=== PATIENT | male | born 1945 | race Caucasian/White ===

== ENCOUNTER 2022-06-06 05:41 | Observation (INO) ==
[2022-06-06] MEDS ORDERED: Buffered Lidocaine 1% SYRIN 1 ml INTRADERM ONE (06:00)
[2022-06-06] MEDS ORDERED: Lactated Ringers 1000 ml BAG 1,000 ML IV SCH (06:00)
[2022-06-06] MEDS ORDERED: ceFAZolin 2 GM PREMIX 2 GM/50 ML BAG ONE (06:07)
[2022-06-06] MEDS ORDERED: fentaNYL 250 mcg/5 ml 50 MCG/ML 5 ml VIAL (250 MCG) ONE (07:02)
[2022-06-06] MEDS ORDERED: Midazolam 2 mg/2 ml VIAL 1 mg/ml 2 ml VIAL (2 mg) ONE (07:02)
[2022-06-06] MEDS ORDERED: Propofol 10 MG/ML 20 ML BTL ONE ×2 (07:02→12:49)
[2022-06-06] MEDS ORDERED: Phenylephrine IV 10 MG/ML 1 ml VIAL ONE (07:03)
[2022-06-06] MEDS ORDERED: Lidocaine 2% PF 5 ML VIAL ONE (07:03)
[2022-06-06] MEDS ORDERED: ROPIVACAINE 5 MG/ML 30 ML BTL (0.5%) ONE (07:06)
[2022-06-06] MEDS ORDERED: Rocuronium 50 mg VIAL 10 mg/ml 5 ml VIAL (50 mg) ONE ×2 (07:08→11:10)
[2022-06-06] MEDS ORDERED: Dexmedetomidine 200 mcg/2 ml 2 ml VIAL (200 mcg) ONE (07:27)
[2022-06-06] MEDS ORDERED: BUPIVACAINE **LIPOSOME/PF 13.3 MG/ML (266MG/ 20ML) VIAL (RESTRICTED) INFIL ONE (08:00)
[2022-06-06] MEDS ORDERED: Dexamethasone IV 4 MG/ML VIAL 1 ml VIAL ONE (08:31)
[2022-06-06] MEDS ORDERED: Naloxone 0.4 mg VIAL 0.4 mg/ml 1 ml VIAL IV PRN (10:12)
[2022-06-06] MEDS ORDERED: Prochlorperazine 5 mg/ml 2 ml VIAL (10 mg) IV PRN (10:12)
[2022-06-06] MEDS ORDERED: HYDROmorphone 1 MG/1 ML SYRINGE IV PRN (10:12)
[2022-06-06] MEDS ORDERED: ceFAZolin VIAL VIAL ONE (10:21)
[2022-06-06] MEDS ORDERED: Ondansetron 4 mg VIAL 2 MG/ML 2 ml VIAL ONE (11:56)
[2022-06-06] MEDS ORDERED: Lactulose 30 ml UDC PO PRN (12:16)
[2022-06-06] MEDS ORDERED: Magnesium Hydroxide LIQ 30 ML UDC PO PRN (12:16)
[2022-06-06] MEDS ORDERED: Ondansetron 4 mg VIAL 2 MG/ML 2 ml VIAL IV PRN (12:16)
[2022-06-06] MEDS ORDERED: Ondansetron ODT 4 mg TAB 4 MG TAB PO PRN (12:16)
[2022-06-06] MEDS ORDERED: ceFAZolin 1 GM ADVAN 1 GM in NS 0.9% 50 ML 50 ML IVPB SCH (13:00)
[2022-06-06] MEDS: Lactated Ringers 1000 ml BAG 1,000 ML IV SCH (18:27)
[2022-06-06] MEDS: ceFAZolin 1 GM ADVAN 1 GM in NS 0.9% 50 ML 50 ML IVPB SCH (19:38)
[2022-06-06] MEDS: Magnesium Hydroxide LIQ 30 ML UDC PO SCH (20:48)
[2022-06-07] MEDS: ceFAZolin 1 GM ADVAN 1 GM in NS 0.9% 50 ML 50 ML IVPB SCH ×2 (04:00→10:42)
[2022-06-07] MEDS: Lactated Ringers 1000 ml BAG 1,000 ML IV SCH (05:33)
[2022-06-07 06:21] LABS: Hematocrit 31 % (42-52); Hemoglobin 10.6 g/dL (14.0-18.0); Mean Platelet Volume 7.8 fL (7.4-10.4); Platelet Count 163 10^3/uL (150-450)
[2022-06-07 06:49] LABS: Potassium 4.8 mmol/L (3.5-5.0); eGFR CKD-EPI 69.6 (>60)
[2022-06-07] MEDS ORDERED: Vitamin THERAPEUTIC TAB PO SCH (09:00)
[2022-06-07] MEDS: Magnesium Hydroxide LIQ 30 ML UDC PO SCH (09:07)
[2022-06-07 11:52] VITALS: BP 143/70
== END 2022-06-07 13:00 | disposition home or self-care (01) ==
LOC: SSU 05:41 → OR 05:41
PROVIDERS: ADMIT Orthopaedic Surgery Sports Medicine; ATTEND Orthopaedic Surgery Sports Medicine

== ENCOUNTER 2024-02-23 09:11 | Observation (INO) ==
[~2024-02-23 09:11] MED LIST: Naloxone 0.4 mg VIAL 0.4 mg/ml 1 ml VIAL IV PRN; Ondansetron 4 mg VIAL 2 MG/ML 2 ml VIAL IV PRN
[2024-02-23] MEDS ORDERED: Midazolam 2 mg/2 ml VIAL 1 mg/ml 2 ml VIAL (2 mg) ONE (09:18)
[2024-02-23] MEDS ORDERED: fentaNYL 250 mcg/5 ml 50 MCG/ML 5 ml VIAL (250 MCG) ONE (09:19)
[2024-02-23] MEDS ORDERED: ceFAZolin 2 GM in NS PREMIX 2 GM/100 ML BAG IVPB ONE (09:41)
[2024-02-23] MEDS ORDERED: Tranexamic Acid 1 GM/100ML BAG 2,000 MG/200 ML BAG IV ONE (09:41)
[2024-02-23] MEDS: Lactated Ringers 1000 ml BAG 1,000 ML IV SCH ×2 (09:48→17:11)
[2024-02-23 09:52] LABS: Rapid COVID-19 Molecular Undetected (Undetected)
[2024-02-23] MEDS ORDERED: Lidocaine 2% PF 5 ML VIAL ONE (10:53)
[2024-02-23] MEDS ORDERED: Rocuronium 50 mg VIAL 10 mg/ml 5 ml VIAL (50 mg) ONE ×2 (10:53→12:07)
[2024-02-23] MEDS ORDERED: Ondansetron 4 mg VIAL 2 MG/ML 2 ml VIAL ONE (12:06)
[2024-02-23] MEDS ORDERED: Dexamethasone IV 4 MG/ML VIAL 1 ml VIAL ONE (12:06)
[2024-02-23] MEDS ORDERED: fentaNYL 100 mcg/2 ml 50 MCG/ML VIAL ONE ×2 (12:35→14:48)
[2024-02-23] MEDS ORDERED: Phenylephrine 40 mcg/mL 10mL (400mcg) SYRINGE ONE (14:09)
[2024-02-23] MEDS ORDERED: Magnesium Hydroxide LIQ 30 ML UDC PO PRN (14:31)
[2024-02-23] MEDS ORDERED: Lactulose 30 ml UDC PO PRN (14:31)
[2024-02-23] MEDS ORDERED: Ondansetron 4 mg VIAL 2 MG/ML 2 ml VIAL IV PRN (14:31)
[2024-02-23] MEDS ORDERED: Morphine 2 MG/ML SYRINGE IV PRN (14:31)
[2024-02-23] MEDS ORDERED: Ondansetron ODT 4 mg TAB 4 MG TAB PO PRN (14:31)
[2024-02-23] MEDS: Buffered Lidocaine 1% SYRIN 1 ml INTRADERM ONE (14:46)
[2024-02-23] MEDS: fentaNYL 100 mcg/2 ml 50 MCG/ML VIAL IV PRN (14:52)
[2024-02-23] MEDS ORDERED: Morphine 4 MG/ML VIAL (1 ml) ONE (15:16)
[2024-02-23] MEDS: Morphine 10 MG/ML VIAL (1 ml) IV ONE (15:17)
[2024-02-23] MEDS: BUPIVACAINE **LIPOSOME/PF 13.3 MG/ML (266MG/ 20ML) VIAL (RESTRICTED) INFIL ONE (16:37)
[2024-02-23] MEDS: hydrALAZINE 20 mg/ml 1 ML Vial IV IV SLOW PU ONE (17:25)
[2024-02-23] MEDS ORDERED: hydrALAZINE 20 mg/ml 1 ML Vial IV IV SLOW PU SCH (18:00)
[2024-02-23] MEDS: ceFAZolin 1 GM ADVAN 1 GM in NS 0.9% 50 ML 50 ML IVPB SCH (20:53)
[2024-02-23] MEDS: Magnesium Hydroxide LIQ 30 ML UDC PO SCH (20:57)
[2024-02-24 08:21] LABS: Hematocrit 33.2 % (38-53); Hemoglobin 11.4 g/dL (13.2-16.3); Mean Platelet Volume 7.9 fL (7.5-11.2); Platelet Count 163 10^3/uL (150-450)
[2024-02-24 08:39] LABS: Creatinine, Serum 1.11 mg/dL (0.67-1.17); Potassium 4.4 mmol/L (3.5-5.0)
[2024-02-24] MEDS: Vitamin THERAPEUTIC TAB PO SCH (08:47)
[2024-02-24 12:24] VITALS: BP 132/53
== END 2024-02-24 13:30 | disposition home or self-care (01) ==
LOC: OR 09:11 → SSU 09:11
PROVIDERS: ADMIT Orthopaedic Surgery Sports Medicine; ATTEND Orthopaedic Surgery Sports Medicine

== ENCOUNTER 2024-02-26 18:39 | Inpatient (IN) ==
[2024-02-26 19:49] LABS: ABS Lymphocytes 0.5 10^3/uL (1.0-4.8); ABS Monocytes 1.3 10^3/uL (0.0-1.1); ABS Neutrophils 5.5 10^3/uL (1.5-7.6); Eosinophil % 0.1 %; Hematocrit 26.8 % (38-53); Hemoglobin 9.3 g/dL (13.2-16.3); Lymphocyte % 6.8 %; Mean Corpuscular Hemoglobin 34.7 pg (27-33); Mean Corpuscular Hgb Conc 34.6 g/dL (31-36); Mean Corpuscular Volume 100.3 fL (80-97); Mean Platelet Volume 7.9 fL (7.5-11.2); Platelet Count 149 10^3/uL (150-450); Red Blood Count 2.68 10^6/uL (4.06-5.63); Red Cell Distribution Width 13.2 % (12-17); White Blood Count 7.3 10^3/uL (3.6-10.2)
[2024-02-26 20:00] LABS: Urine Appearance Clear; Urine Bilirubin Negative (Negative); Urine Blood Negative (Negative); Urine Color Light-Yellow; Urine Glucose Negative (Negative); Urine Ketones Negative (Negative); Urine Nitrite Negative (Negative); Urine Protein Trace (Negative); Urine Specific Gravity 1.014 (1.002-1.030); Urine Urobilinogen Negative (Negative); Urine pH 6.5 (5.0-8.0)
[2024-02-26 20:14] LABS: High Sens Troponin Baseline 9 pg/mL (<20)
[2024-02-26 20:23] LABS: ALT 30 U/L (7-52); Albumin 3.4 g/dL (3.2-5.2); Albumin/Globulin Ratio 1.6 (1-3); Alkaline Phosphatase 60 U/L (35-149); Anion Gap 9 mmol/L (2-16); Blood Urea Nitrogen 32 mg/dL (6-24); CO2 Carbon Dioxide 24 mmol/L (22-32); Calcium 8.4 mg/dL (8.6-10.3); Chloride 95 mmol/L (101-111); Creatinine, Serum 1.56 mg/dL (0.67-1.17); Globulin 2.1 g/dL (2-4); Glucose 97 mg/dL (70-100); Sodium 128 mmol/L (135-145); Total Protein 5.5 g/dL (6.4-8.9); eGFR CKD-EPI 45.2 (>60)
[2024-02-26 20:48] LABS: TSH Ultra Thyroid Stim Horm 1.77 mcIU/mL (0.34-5.60)
[2024-02-26 21:08] LABS: High Sensitivity Troponin 1 Hr 30 pg/mL (<20)
[2024-02-26] MEDS: NS 0.9% 500 ml BAG 500 ML IV ONE (22:21)
[2024-02-26 23:00] LABS: High Sensitivity Troponin 3 Hr 8 pg/mL (<20)
[2024-02-27] MEDS: Lactated Ringers 1000 ml BAG 1,000 ML IV SCH (01:01)
[2024-02-27] MEDS ORDERED: Lorazepam PYXIS KEY PRN (03:21)
[2024-02-27] MEDS: LORazepam 2 mg VIAL 1 ml IV PUSH ONE (03:28)
[2024-02-27 06:20] LABS: ABS Eosinophils 0.1 10^3/uL (0.0-0.5); ABS Lymphocytes 0.6 10^3/uL (1.0-4.8); ABS Monocytes 1.2 10^3/uL (0.0-1.1); ABS Neutrophils 5.3 10^3/uL (1.5-7.6); Eosinophil % 0.9 %; Hematocrit 26.8 % (38-53); Hemoglobin 9.3 g/dL (13.2-16.3); Lymphocyte % 7.8 %; Mean Corpuscular Hemoglobin 34.7 pg (27-33); Mean Corpuscular Hgb Conc 34.7 g/dL (31-36); Mean Platelet Volume 7.9 fL (7.5-11.2); Platelet Count 166 10^3/uL (150-450); Red Blood Count 2.68 10^6/uL (4.06-5.63); Red Cell Distribution Width 13.2 % (12-17); White Blood Count 7.1 10^3/uL (3.6-10.2)
[2024-02-27 06:54] LABS: Albumin 3.3 g/dL (3.2-5.2); Albumin/Globulin Ratio 1.8 (1-3); Calcium 8.5 mg/dL (8.6-10.3); Creatinine, Serum 1.38 mg/dL (0.67-1.17); Globulin 1.8 g/dL (2-4); Magnesium 1.9 mg/dL (1.9-2.7); Potassium 3.3 mmol/L (3.5-5.0); Total Bilirubin 1.1 mg/dL (0.2-1.0); Total Protein 5.1 g/dL (6.4-8.9); eGFR CKD-EPI 52.3 (>60)
[2024-02-27] MEDS: Multivitamins/Minerals TAB PO SCH (09:30)
[2024-02-27] MEDS: Cholecalciferol (VIT D3) 1,000 unit TAB PO SCH (09:33)
[2024-02-27] MEDS: Potassium Chlor 20 meq TAB.ER PO ONE (11:55)
[2024-02-28 06:26] LABS: Calcium 8.8 mg/dL (8.6-10.3); Creatinine, Serum 1.13 mg/dL (0.67-1.17); Magnesium 1.6 mg/dL (1.9-2.7); Potassium 3.6 mmol/L (3.5-5.0); eGFR CKD-EPI 66.5 (>60)
[2024-02-28] MEDS ORDERED: Lisinopril/HCTZ 20/25 TAB (NF) PO SCH (09:00)
[2024-02-28] MEDS: Magnesium Sulfate 2 gm BAG 2 GM/50 ML BAG IVPB ONE (11:12)
[2024-02-28 15:00] LABS: ABS Eosinophils 0.1 10^3/uL (0.0-0.5); ABS Lymphocytes 0.7 10^3/uL (1.0-4.8); ABS Monocytes 1.2 10^3/uL (0.0-1.1); ABS Neutrophils 4.4 10^3/uL (1.5-7.6); Eosinophil % 2.1 %; Hematocrit 27.3 % (38-53); Hemoglobin 9.5 g/dL (13.2-16.3); Lymphocyte % 10.6 %; Mean Corpuscular Hemoglobin 34.7 pg (27-33); Mean Corpuscular Hgb Conc 34.8 g/dL (31-36); Mean Corpuscular Volume 99.6 fL (80-97); Mean Platelet Volume 7.9 fL (7.5-11.2); Platelet Count 205 10^3/uL (150-450); Red Blood Count 2.74 10^6/uL (4.06-5.63); Red Cell Distribution Width 13.1 % (12-17); White Blood Count 6.4 10^3/uL (3.6-10.2)
[2024-02-29 06:14] LABS: Hematocrit 27.2 % (38-53); Hemoglobin 9.7 g/dL (13.2-16.3); Mean Corpuscular Hemoglobin 35.2 pg (27-33); Mean Corpuscular Hgb Conc 35.6 g/dL (31-36); Mean Corpuscular Volume 98.7 fL (80-97); Mean Platelet Volume 7.2 fL (7.5-11.2); Platelet Count 229 10^3/uL (150-450); Red Blood Count 2.75 10^6/uL (4.06-5.63); Red Cell Distribution Width 12.7 % (12-17); White Blood Count 6.1 10^3/uL (3.6-10.2)
[2024-02-29 06:20] LABS: ABS Eosinophils 0.2 10^3/uL (0.0-0.5); ABS Lymphocytes 0.7 10^3/uL (1.0-4.8); ABS Monocytes 1.2 10^3/uL (0.0-1.1); ABS Neutrophils 3.9 10^3/uL (1.5-7.6); ABS Nucleated RBC 0.01 10^3/ul; Lymphocyte % 10.9 %; Nucleated Red Blood Cells % 0.1 %/100WBC (0.0-0.8)
[2024-02-29 06:39] LABS: Calcium 9.2 mg/dL (8.6-10.3); Creatinine, Serum 1.04 mg/dL (0.67-1.17); Magnesium 1.5 mg/dL (1.9-2.7); Potassium 3.3 mmol/L (3.5-5.0); eGFR CKD-EPI 73.5 (>60)
[2024-02-29] MEDS: Potassium Chlor 20 meq TAB.ER PO ONE ×2 (08:33→13:43)
[2024-02-29] MEDS: Magnesium Sulfate 2 gm BAG 2 GM/50 ML BAG IVPB ONE (08:42)
[2024-02-29] MEDS: KCL 20 MEQ/100 ML IVPREMIX 20 MEQ/100 ML BAG IV SCH (13:13)
[2024-02-29] MEDS: Magnesium Sulfate IV 1GM/100ML 1 GM/100 ML BAG IV ONE (13:13)
[2024-03-01 06:10] LABS: Creatinine, Serum 1.04 mg/dL (0.67-1.17); Magnesium 1.5 mg/dL (1.9-2.7); Potassium 3.7 mmol/L (3.5-5.0); eGFR CKD-EPI 73.5 (>60)
[2024-03-01 08:47] LABS: Ferritin 197.3 ng/mL (24-336)
[2024-03-01] MEDS: Magnesium Sulfate 2 gm BAG 2 GM/50 ML BAG IVPB ONE (08:59)
[2024-03-01] MEDS: Magnesium Sulfate IV 1GM/100ML 1 GM/100 ML BAG IV ONE (11:03)
[2024-03-01 13:35] VITALS: BP 137/56
== END 2024-03-01 13:45 | disposition home or self-care (01) | DRG 92 ==
LOC: EDHOLD 18:39 → ED 18:39 → SUATTDRO 23:38 → MEDTELE 02-27 01:25 → SUATTDRO 02-28 14:00
PROVIDERS: ADMIT Hospitalist; ATTEND Student in an Organized Health Care Education/Training Program